=== PATIENT | female | born 1945 | race Caucasian/White ===

== ENCOUNTER 2020-11-14 08:49 | Inpatient (IN) | payer OTHER ==
[~2020-11-14] VITALS: Ht 170.2 cm; Wt 96.2 kg
[2020-11-14] MEDS ORDERED: IV NS 0.9% 500 ML IV ONE (09:00)
[2020-11-14] MEDS ORDERED: DEXAMETHASONE SOD PHOSPHATE 10 MG/ML VIAL IV ONE (09:00)
--- NOTE | 2020-11-14 09:00 | NUR ---
[id number] HOME, GENERALIZED WEAKNESS, SOB. +COVID LAST TUESDAY PER EMS, ATTING 86% RA DOCK HAND. BG 222. PATIENT A/OX4, SHORT OF BREATH, APPLIED O2, ON 2LPM VIA NC WITH SPO2 OF 96%. NEEDS ATTENDED.
[2020-11-14] MEDS ORDERED: DEXAMETHASONE SOD PHOSPHATE 10 MG/ML VIAL ONE (09:10)
--- NOTE | 2020-11-14 09:24 | NUR ---
IV LINE ESTABLISHED, BLOOD DRAWN AND SENT TO LAB.
[2020-11-14] MEDS ORDERED: PIOG30TA10 PO (09:25)
[2020-11-14] MEDS ORDERED: GABA600T12 PO (09:25)
[2020-11-14] MEDS ORDERED: METF-441 PO (09:25)
[2020-11-14] MEDS ORDERED: AMLO-212 PO (09:25)
[2020-11-14] MEDS ORDERED: GLIP10TA11 PO (09:25)
[2020-11-14] MEDS ORDERED: INSU100V7 SUBCUT (09:25)
[2020-11-14] MEDS ORDERED: LOSA100T31 PO (09:25)
[2020-11-14] MEDS ORDERED: METO-357 PO (09:25)
[2020-11-14 09:55] LABS: BASOPHILS % (AUTO) 0.3 % (0.0-2.0); EOSINOPHILS % (AUTO) 0.1 % (0.0-6.0); HEMATOCRIT 33 % (33-45); HEMOGLOBIN 9.9 g/dL (11.5-14.8); LYMPHOCYTES # (AUTO) 0.7 /CMM (0.8-4.8); LYMPHOCYTES % (AUTO) 7.8 % (20.0-44.0); MEAN CORPUSCULAR HGB CONC 30 g/dl (31.0-36.0); MEAN CORPUSCULAR VOLUME 70 fL (82-100); MONOCYTES # (AUTO) 0.6 /CMM (0.1-1.30); MONOCYTES % (AUTO) 7.3 % (2.0-12.0); NEUTROPHILS # (AUTO) 7.2 /CMM (1.8-8.9); NEUTROPHILS % (AUTO) 84.5 % (43.0-81.0); PLATELET COUNT (AUTO) 215 /CMM (150-450); RED BLOOD CELL COUNT(AUTO) 4.62 MIL/uL (4.0-5.2); WHITE BLOOD COUNT (AUTO) 8.5 K/uL (4.3-11.0)
[2020-11-14 10:05] LABS: CALCIUM, SERUM 8.8 mg/dL (8.5-10.1); CARBON DIOXIDE 24 mmol/L (21-32); CHLORIDE 101 mmol/L (98-107); CREATININE 1.5 mg/dL (0.6-1.3); GLUCOSE 238 mg/dL (74-106); POTASSIUM 4.3 mmol/L (3.5-5.1); SODIUM SERUM 134 mmol/L (136-145); UREA NITROGEN, BLOOD 25 mg/dL (7-18)
[2020-11-14 10:19] LABS: ALANINE AMINOTRANSFERASE 73 U/L (12-78); ALBUMIN 2.4 g/dL (3.4-5.0); ALKALINE PHOSPHATASE 97 U/L (46-116); ASPARTATE AMINOTRANSFERASE 71 U/L (15-37); B-TYPE NATRIURETIC PEPTIDE 4066 PG/ML (0-125); BILIRUBIN,TOTAL 0.4 mg/dL (0.2-1.0); TOTAL PROTEIN, SERUM 6.7 g/dL (6.4-8.2)
[2020-11-14 10:26] LABS: D-DIMER > 35.20 mg/L(FEU (0.17-0.50)
[2020-11-14] MEDS ORDERED: ASPIRIN 81 MG TAB.CHEW PO ONE (10:30)
[2020-11-14] MEDS ORDERED: FUROSEMIDE 20 MG/2 ML VIAL IV ONE (10:30)
[2020-11-14] MEDS ORDERED: ASPIRIN 81 MG TAB.CHEW ONE ×2 (10:32→10:37)
[2020-11-14] MEDS ORDERED: FUROSEMIDE 20 MG/2 ML VIAL ONE (10:32)
[2020-11-14] MEDS ORDERED: CT SWABBABLE VALVE TRANS SET 1 EA INFUS.SET MC ONE (11:15)
[2020-11-14] MEDS ORDERED: IV NS 0.9% 250 ML IV ONE (11:15)
[2020-11-14] MEDS ORDERED: IOHEXOL-350 100 ML VIAL IV ONE (11:15)
--- NOTE | 2020-11-14 12:08 | NUR ---
MOVE SHEET SUBMITTED
--- NOTE | 2020-11-14 12:13 | NUR ---
Patient a/ox4, breathing even and unlabored, no sob noted. Dr. benton at bedside with a bleach machine operator, informed patietn re: cta result with tx of TPA. And patient agreed to received TPA. Consent signed.
[2020-11-14 12:30] LABS: C-REACTIVE PROTEIN 7.2 mg/dL (0.0-0.9); CREATINE KINASE, TOTAL 88 U/L (26-192); FERRITIN 67 ng/mL (8-388)
[2020-11-14] MEDS ORDERED: TENECTEPLASE 50 MG KIT IV ONE (12:30)
[2020-11-14] MEDS ORDERED: ALTEPLASE 100 MG/VIAL VIAL IV ONE (13:00)
[2020-11-14 13:32] LABS: BILIRUBIN,DIRECT 0.2 mg/dL (0.0-0.2)
[2020-11-14] MEDS ORDERED: ALTEPLASE 1 VIAL ONE (13:33)
[2020-11-14 13:49] LABS: MAGNESIUM 1.9 mg/dL (1.8-2.4)
--- NOTE | 2020-11-14 14:01 | NUR ---
TPA INITIATED, MONITOR FOR S.SX OF BLEEDING. NONE NOTED AT THIS TIME. VITALS STABLE.
[2020-11-14 14:04] LABS: THYROID STIMULATING HORMONE 1.218 uIU/mL (0.358-3.74)
--- NOTE | 2020-11-14 16:51 | NUR ---
US TECH STS THEY CANT DO DUPLEX VENOUS LOWER EXT FINA. BECAUSE PATIENT IS COVID +. INFORMED DR. JONHSON. PER DR. JOHNSON, THEY NEED TO MAKE AN EXCEPTION FOR THIS PATIENT.
[2020-11-14] MEDS: FUROSEMIDE 40 MG/4 ML VIAL IV SCH ×2 (17:23→17:41)
--- NOTE | 2020-11-14 17:23 | NUR ---
LASIX RE-ORDERED BY PHARMACY, CHANGED TIME SCHEDULED DOSE.
[2020-11-14] MEDS ORDERED: FUROSEMIDE 40 MG/4 ML VIAL ONE (17:28)
--- NOTE | 2020-11-14 17:42 | NUR ---
ALTEPLASE STILL INFUSING. PATIENT NOTED TO FOLD ARMS AT TIME. HENCE, THE MACHINE STOPS.
[2020-11-14] MEDS: HEPARIN INFUSION/D5W 500 ML IV PRN (18:45)
--- NOTE | 2020-11-14 18:46 | NUR ---
HEPARIN INFUSION STARTED. REPEAT PTT IN 6 HOURS.
--- NOTE | 2020-11-14 19:23 | NUR ---
PATIENT RESTING, ALL NEEDS ATTENDED, KEPT COMFORTABLE, WILL CONTINUE TO MONITOR.
--- NOTE | 2020-11-14 19:30 | NUR ---
REC'D PT IN BED, AAOX4, -SOB, ON NC 4L SAT 98%. DENIES ANY PAIN DISCOMFORT, VSS. WCTM PT REC'D TPA FOR P.E, ONGOING HEPARIN, APTT DRAW AT 2330.
[2020-11-14] MEDS ORDERED: DEXTROSE 50%-WATER 50 ML DISP.SYRIN IV PRN (22:30)
[2020-11-14] MEDS ORDERED: Z GUARD REMEDY 2 OZ OINT TP PRN (22:30)
[2020-11-14] MEDS ORDERED: ACETAMINOPHEN 325 MG TABLET PO PRN (22:30)
[2020-11-14] MEDS: BLOOD SUGAR DIAGNOSTIC 1 EACH STRIP VI SCH (22:30)
[2020-11-14] MEDS ORDERED: INSULIN REGULAR, HUMAN 100 UNIT/ML 3 ML VIAL SQ PRN (22:30)
[2020-11-14] MEDS ORDERED: ONDANSETRON HCL/PF 4 MG/2 ML VIAL IVP PRN (22:30)
[2020-11-15] VITALS (19 sets, daily range): BP systolic 105–156; BP diastolic 56–87
--- NOTE | 2020-11-15 00:05 | NUR ---
aptt result rec'd. no change per protocol. cont heparin infusion
[2020-11-15] MEDS ORDERED: FUROSEMIDE 40 MG/4 ML VIAL ONE (00:49)
[2020-11-15] MEDS ORDERED: DEXAMETHASONE SOD PHOSPHATE 10 MG/ML VIAL ONE (00:49)
[2020-11-15] MEDS: FUROSEMIDE 40 MG/4 ML VIAL IV SCH (00:50)
[2020-11-15] MEDS: DEXAMETHASONE SOD PHOSPHATE 10 MG/ML VIAL IV SCH ×2 (00:50→09:02)
[2020-11-15] MEDS ORDERED: ACETAMINOPHEN 325 MG TABLET ONE (02:31)
--- NOTE | 2020-11-15 03:15 | NUR ---
STARTED CONVALASCENT PLASMA. SEE BLOOD/BLOOD COMPONENT TRANSFUSION SHEET IN CHART. UNABLE TO DOCUMENT ON [employer]. VERIFIED WITH 2ND RN.
[2020-11-15 06:11] LABS: BASOPHILS % (AUTO) 0.2 % (0.0-2.0); HEMATOCRIT 31 % (33-45); HEMOGLOBIN 9.5 g/dL (11.5-14.8); LYMPHOCYTES # (AUTO) 0.7 /CMM (0.8-4.8); LYMPHOCYTES % (AUTO) 10.5 % (20.0-44.0); MEAN CORPUSCULAR HGB CONC 31 g/dl (31.0-36.0); MEAN CORPUSCULAR VOLUME 71 fL (82-100); MONOCYTES # (AUTO) 0.6 /CMM (0.1-1.30); MONOCYTES % (AUTO) 8.7 % (2.0-12.0); NEUTROPHILS # (AUTO) 5.4 /CMM (1.8-8.9); NEUTROPHILS % (AUTO) 80.6 % (43.0-81.0); PLATELET COUNT (AUTO) 236 /CMM (150-450); RED BLOOD CELL COUNT(AUTO) 4.35 MIL/uL (4.0-5.2); WHITE BLOOD COUNT (AUTO) 6.7 K/uL (4.3-11.0)
--- NOTE | 2020-11-15 06:14 | NUR ---
REPORT GIVEN TO OLEKSANDR SPRING FOR [facility]; PT WILL BE TRANSPORTED TO ICU
--- NOTE | 2020-11-15 06:16 | NUR ---
Rec'd report from for [facility].
[2020-11-15 06:27] LABS: ALANINE AMINOTRANSFERASE 61 U/L (12-78); ALBUMIN 2.4 g/dL (3.4-5.0); ALKALINE PHOSPHATASE 91 U/L (46-116); ASPARTATE AMINOTRANSFERASE 57 U/L (15-37); BILIRUBIN,TOTAL 0.4 mg/dL (0.2-1.0); CALCIUM, SERUM 8.5 mg/dL (8.5-10.1); CARBON DIOXIDE 21 mmol/L (21-32); CHLORIDE 102 mmol/L (98-107); CREATININE 1.4 mg/dL (0.6-1.3); GLUCOSE 289 mg/dL (74-106); MAGNESIUM 1.7 mg/dL (1.8-2.4); PHOSPHORUS 4.7 mg/dL (2.5-4.9); POTASSIUM 4.5 mmol/L (3.5-5.1); SODIUM SERUM 137 mmol/L (136-145); TOTAL PROTEIN, SERUM 6.7 g/dL (6.4-8.2); UREA NITROGEN, BLOOD 33 mg/dL (7-18)
--- NOTE | 2020-11-15 07:00 | NUR ---
DOCUMENT PROCESSOR NOTE: Rec'd pt from ER accompanied by RN and EMT. Pt able to walk to bed w/ assist, unsteady gait. Pt Eritrean speaking only. IV sites on RAC #20 and RFA #20 patent and flushed. Dressing c/d/i. Heparin drip infusing at 1000units. Oriented to room and call light. Will endorse to oncoming nurse.
--- NOTE | 2020-11-15 07:00 | NUR ---
ICU OPENING NOTES RECEIVED PT AWAKE IN BED. A/O X3-4. CZECH SPEAKING. JAVIER RN ABLE TO HELP WITH TRANSLATION. O2 VIA NC @2L, SATURATING @98%. NO SOB OR ANY RESPIRATORY DISTRESS AT THIS TIME. SKIN IS INTACT. BRUISES NOTED ON ARMS. R AC #20 AND R FA #20 BOTH INTACT, PATENT. HEPARIN DRIP INFUSING @1000 UNITS. NO SIGNS OF BLEEDING. SAFETY MEASURES OBSERVED. CALL LIGHT WITHIN REACH. BED LOCKED AND AT LOWEST POSITION WITH SIDE RAILS UP X2. WILL CONTINUE TO MONITOR
[2020-11-15] MEDS: BLOOD SUGAR DIAGNOSTIC 1 EACH STRIP VI SCH ×4 (07:30→21:58)
[2020-11-15 08:28] LABS: BAND % (MANUAL) 1 % (0.0-5.0); LYMPHOCYTES % (MANUAL) 5 % (16-48); MONOCYTES % (MANUAL) 6 % (0-11.0); MYELOCYTES % 2 % (0-0); NEUTROPHILS % (MANUAL) 86 (42-76)
[2020-11-15] MEDS ORDERED: AMLODIPINE BESYLATE 5 MG TABLET PO SCH (09:00)
[2020-11-15] MEDS ORDERED: LOSARTAN POTASSIUM 50 MG TABLET PO SCH (09:00)
[2020-11-15] MEDS: Magnesium 1GM/D5W 100ML PREMIX 100 ML IV SCH ×2 (09:01→10:20)
[2020-11-15] MEDS: PIOGLITAZONE HCL 15 MG TABLET PO SCH (09:01)
[2020-11-15] MEDS: GABAPENTIN 300 MG CAPSULE PO SCH ×3 (09:02→18:25)
[2020-11-15] MEDS: AMLODIPINE BESYLATE 5 MG TABLET PO SCH (09:04)
[2020-11-15] MEDS: METOPROLOL SUCCINATE 50 MG TAB.SR.24H PO SCH (09:04)
[2020-11-15] MEDS: *INSULIN REGULAR(HUMULIN R)HUM 100 UNIT/ML VIAL SQ PRN ×4 (09:33→22:12)
--- NOTE | 2020-11-15 12:39 | NUR ---
RN NOTES BLOOD SUGAR OF 408. 10 UNITS OF INSULIN GIVEN PER SLIDING SCALE. INFORMED DR. RUIZ. NO NEW ORDERS MADE. WILL CONTINUE TO MONITOR
[2020-11-15] MEDS: SOD FERRIC GLUC 125 MG in IV NS 0.9% 100 ML IV SCH (14:13)
[2020-11-15 15:16] LABS: IRON, SERUM 35 ug/dl (50-175); TOTAL IRON BINDING CAPACITY 277 ug/dl (250-450)
[2020-11-15] MEDS: HEPARIN INFUSION/D5W 500 ML IV PRN (15:54)
[2020-11-15 16:34] LABS: BILIRUBIN,URINE SMALL (NEGATIVE); COLOR,URINE YELLOW (YELLOW); LEUKOCYTE ESTERASE ,URINE NEGATIVE (NEGATIVE); NITRITE, URINE NEGATIVE (NEGATIVE); PH,URINE 5.5 (5.0-8.0); PROTEIN,URINE NEGATIVE (NEGATIVE); UGLUCOSE 500 MG/DL mg/dL (NEGATIVE); UROBILINOGEN,URINE 0.2 EU/dL (0.2)
[2020-11-15 16:45] LABS: BACTERIA,URINE Few /HPF (None Seen); RBC,URINE 0-2 /HPF (0-2); SQUAMOUS EPITHELIAL CELL,UR Moderate /HPF (None Seen); WBC,URINE 0-2 /HPF (0-3)
[2020-11-15 16:46] LABS: EOSINOPHIL,URINE None Seen
[2020-11-15 16:49] LABS: URINE TOTAL PROTEIN 55.9 mg/dL (0-11.9)
[2020-11-15 17:25] LABS: CHOLESTEROL 169 mg/dL (<200); HDL CHOLESTEROL 39 mg/dL (40-60); LDL 105 mg/dL (0-99); THYROID STIMULATING HORMONE 0.548 uIU/mL (0.358-3.74); TRIGLYCERIDES 193 mg/dL (30-150)
--- NOTE | 2020-11-15 19:25 | NUR ---
RN OPENING NOTES RECEIVED PT IN BED RESTING. A/O X4. TURKISH SPEAKING PRIMARILY. UNDERSTANDS FRISIAN, ABLE TO MAKE NEEDS KNOWN. PT IS ON 2L OF O2 VIA NASAL CANNULA. PT IS CURRENTLY AT 96% NO SOB OR RESP DISTRESS NOTED. PT TOLERATING WELL. BREATHING EVEN AND UNLABORED. ON CARDIAC MONITORING PT IS PRESENTING WITH NSR HEART OF 74 AT THIS TIME. IV SITES FLUSHED, RAC AND RFA. PT HAS HEPARIN DRIP @ 1000 UNITS/KG, AWAITING MORNING LABS. NO S/S OF BLEEDING AT THIS TIME. PT DENIES PAIN AT THIS TIME. SAFETY MEASURES IN PLACE. HOB ELEVATED. SIDE RAILS UP X2. BED LOCKED IN LOWEST POSITION WITH CALL LIGHT WITHIN REACH, WILL CONTINUE TO MONITOR.
--- NOTE | 2020-11-15 19:29 | NUR ---
ICU CLOSING NOTES PT AWAKE RESTING IN BED. A/O X3-4. BELIZEAN SPEAKING. JAVIER RN ABLE TO HELP WITH TRANSLATION. O2 VIA NC @2L, SATURATING @98%. NO SOB OR ANY RESPIRATORY DISTRESS AT THIS TIME. SKIN IS INTACT. BRUISES NOTED ON ARMS. R AC #20 AND R FA #20 BOTH INTACT, PATENT. HEPARIN DRIP INFUSING @1000 UNITS. NO SIGNS OF BLEEDING. NO PAIN REPORTED AT THIS TIME. SAFETY MEASURES OBSERVED. CALL LIGHT WITHIN REACH. BED LOCKED AND AT LOWEST POSITION WITH SIDE RAILS UP X2. WILL ENDORSE TO NURSE FOR MEMO
[2020-11-15] MEDS: INSULIN GLARGINE, 100 UNIT/ML CARTRIDGE SQ SCH (22:12)
[2020-11-16] VITALS (17 sets, daily range): BP systolic 105–137; BP diastolic 49–73
[2020-11-16] MEDS ORDERED: DEXTROSE 50%-WATER 50 ML DISP.SYRIN IV PRN (01:00)
[2020-11-16 04:50] LABS: BASOPHILS % (AUTO) 0.3 % (0.0-2.0); HEMATOCRIT 29 % (33-45); HEMOGLOBIN 9.1 g/dL (11.5-14.8); LYMPHOCYTES # (AUTO) 0.8 /CMM (0.8-4.8); LYMPHOCYTES % (AUTO) 9.2 % (20.0-44.0); MEAN CORPUSCULAR HGB CONC 31 g/dl (31.0-36.0); MEAN CORPUSCULAR VOLUME 70 fL (82-100); MONOCYTES # (AUTO) 0.8 /CMM (0.1-1.30); MONOCYTES % (AUTO) 8.9 % (2.0-12.0); NEUTROPHILS # (AUTO) 7.2 /CMM (1.8-8.9); NEUTROPHILS % (AUTO) 81.6 % (43.0-81.0); PLATELET COUNT (AUTO) 328 /CMM (150-450); RED BLOOD CELL COUNT(AUTO) 4.16 MIL/uL (4.0-5.2); WHITE BLOOD COUNT (AUTO) 8.8 K/uL (4.3-11.0)
[2020-11-16 05:10] LABS: ALANINE AMINOTRANSFERASE 54 U/L (12-78); ALBUMIN 2.5 g/dL (3.4-5.0); ALKALINE PHOSPHATASE 93 U/L (46-116); ASPARTATE AMINOTRANSFERASE 40 U/L (15-37); BILIRUBIN,TOTAL 0.3 mg/dL (0.2-1.0); CALCIUM, SERUM 8.8 mg/dL (8.5-10.1); CARBON DIOXIDE 23 mmol/L (21-32); CHLORIDE 99 mmol/L (98-107); CREATININE 1.7 mg/dL (0.6-1.3); GLUCOSE 311 mg/dL (74-106); MAGNESIUM 2.1 mg/dL (1.8-2.4); PHOSPHORUS 4.1 mg/dL (2.5-4.9); POTASSIUM 3.8 mmol/L (3.5-5.1); SODIUM SERUM 134 mmol/L (136-145); TOTAL PROTEIN, SERUM 6.3 g/dL (6.4-8.2); UREA NITROGEN, BLOOD 46 mg/dL (7-18)
[2020-11-16 05:12] LABS: CREATINE KINASE, TOTAL 43 U/L (26-192)
--- NOTE | 2020-11-16 05:15 | NUR ---
TITRATING HEPARIN DRIP ACCORDING TO PROTOCOL BASED ON NEW LABS.
[2020-11-16 05:28] LABS: BAND % (MANUAL) 4 % (0.0-5.0); LYMPHOCYTES % (MANUAL) 7 % (16-48); MONOCYTES % (MANUAL) 7 % (0-11.0); NEUTROPHILS % (MANUAL) 82 (42-76)
--- NOTE | 2020-11-16 06:35 | NUR ---
RN CLOSING NOTES RN CLOSING NOTES NO SIGNIFICANT CHANGES. PT RESTED WELL THROUGHOUT NIGHT. STILL ON 2L OF O2 NASAL CANNULA, SATURATION 99% AT THIS TIME. TOLERATING WELL. NO SOB OR RESP DISTRESS NOTED, BREATHING EVEN AND UNLABORED. STILL NSR HEART RATE OF 61 ON DIRECTOR FUNDS DEVELOPMENT. CURRENTLY RECEIVING, HEPARIN 900 UNIT/HR AT THIS TIME. NO S/S OF BLEEDING. PT USED BSC, AMB WITH ASSIST. DENIED BED BATH, HYGIENE PRODUCTS PROVIDED. SAFETY MEASURES IN PLACE. HOB ELEVATED SIDE RAILS X2. BED LOCKED IN LOWEST POSITION. CALL LIGHT WITHIN REACH WILL ENDORSE AM NURSE FOR CONTINUATION OF CARE.
[2020-11-16] MEDS: DEXAMETHASONE SOD PHOSPHATE 10 MG/ML VIAL IV SCH (08:51)
[2020-11-16] MEDS: BLOOD SUGAR DIAGNOSTIC 1 EACH STRIP IN SCH ×4 (08:51→22:07)
[2020-11-16] MEDS: AMLODIPINE BESYLATE 5 MG TABLET PO SCH (08:54)
[2020-11-16] MEDS: METOPROLOL SUCCINATE 50 MG TAB.SR.24H PO SCH (08:54)
[2020-11-16] MEDS: GABAPENTIN 300 MG CAPSULE PO SCH ×3 (08:55→16:31)
[2020-11-16] MEDS: PIOGLITAZONE HCL 15 MG TABLET PO SCH (08:55)
[2020-11-16] MEDS: INSULIN REGULAR, HUMAN 100 UNIT/ML 3 ML VIAL SQ PRN ×4 (09:01→22:12)
[2020-11-16] MEDS: APIXABAN 2.5 MG TABLET PO SCH ×2 (13:42→21:43)
--- NOTE | 2020-11-16 14:25 | NUR ---
DOCUMENT PREPARER MICROFILMING NOTE RECEIVED PATIENT FROM ICU ALERT ORIENTED X4, PLACED ON 2L NC OF O2 ,NO SOB NOTED SATURATION 98% , ON TELE MONITOR SR 89 , RT AC AND RT FA HL INTACT , BED IN LOWEST AND LOCKED POSITION, CALL LIGHT WITHIN REACH , WILL CONT TO MONITOR
--- NOTE | 2020-11-16 14:30 | NUR ---
PT TRANSPORTED SAFELY W NO COMPLICATIONS TO RUDDY VIA WHEELCHAIR W WALL CRANE OPERATOR AND RN. 2L/MIN NASAL CANULA WITH OXYGEN TANK. BEDSIDE REPORT GIVEN TO BARTOLO OF RUDDY. ALL BELONGINGS BROUGHT W PATIENT.
[2020-11-16] MEDS: SOD FERRIC GLUC 125 MG in IV NS 0.9% 100 ML IV SCH (14:34)
--- NOTE | 2020-11-16 18:34 | NUR ---
TELE R NOTE HAVING DINNER , ABLE TO EAT SELF, NOT IN DISTRESS
--- NOTE | 2020-11-16 19:55 | NUR ---
RN OPENING NOTES RECEIVED PT IN BED RESTING. A/O X4. GUINEAN SPEAKING PRIMARILY. UNDERSTANDS DIVEHI, ABLE TO MAKE NEEDS KNOWN. PT IS ON 2L OF O2 VIA NASAL CANNULA. PT IS CURRENTLY AT 98% NO SOB OR RESP DISTRESS NOTED. PT TOLERATING WELL. BREATHING EVEN AND UNLABORED. ON CARDIAC MONITORING PT IS PRESENTING WITH NSR HEART OF 73 AT THIS TIME. IV SITES FLUSHED, RAC AND RFA. AFEBRILE. PT DENIES PAIN AT THIS TIME. SAFETY MEASURES IN PLACE. HOB ELEVATED. SIDE RAILS UP X2. BED LOCKED IN LOWEST POSITION WITH CALL LIGHT WITHIN REACH, WILL CONTINUE TO MONITOR.
[2020-11-16] MEDS: INSULIN GLARGINE, 100 UNIT/ML CARTRIDGE SQ SCH (22:13)
[2020-11-17] VITALS: BP 127/65
[2020-11-17 04:00] VITALS: BP 125/81
[2020-11-17 07:13] LABS: BASOPHILS % (AUTO) 0.2 % (0.0-2.0); HEMATOCRIT 33 % (33-45); LYMPHOCYTES # (AUTO) 1.1 /CMM (0.8-4.8); LYMPHOCYTES % (AUTO) 8.6 % (20.0-44.0); MEAN CORPUSCULAR HGB CONC 30 g/dl (31.0-36.0); MEAN CORPUSCULAR VOLUME 71 fL (82-100); MONOCYTES % (AUTO) 7.7 % (2.0-12.0); NEUTROPHILS # (AUTO) 10.6 /CMM (1.8-8.9); NEUTROPHILS % (AUTO) 83.5 % (43.0-81.0); PLATELET COUNT (AUTO) 399 /CMM (150-450); RED BLOOD CELL COUNT(AUTO) 4.73 MIL/uL (4.0-5.2); WHITE BLOOD COUNT (AUTO) 12.6 K/uL (4.3-11.0)
[2020-11-17 07:14] LABS: CALCIUM, SERUM 8.8 mg/dL (8.5-10.1); CARBON DIOXIDE 25 mmol/L (21-32); CHLORIDE 101 mmol/L (98-107); CREATININE 1.7 mg/dL (0.6-1.3); GLUCOSE 204 mg/dL (74-106); MAGNESIUM 2.2 mg/dL (1.8-2.4); PHOSPHORUS 3.3 mg/dL (2.5-4.9); POTASSIUM 4.2 mmol/L (3.5-5.1); SODIUM SERUM 134 mmol/L (136-145); UREA NITROGEN, BLOOD 54 mg/dL (7-18)
--- NOTE | 2020-11-17 07:30 | NUR ---
RN OPENING NOTE PATIENT RECEIVED IN BED CURRENTLY RESTING IN SEMI-FOWLERS POSITION, A&OX4, ABLE TO MAKE NEEDS KNOWN, BREATHING EVENLY AND UNLABORED, TOLERATING O2 THERAPY WELL VIA NC AT 3 LPM SATTING AT 98%. NO SOB NOTED, DENIES PAIN. TELE MONITOR READING SINUS RHYTHM. ISOLATION PRECAUTIONS MAINTAINED. TWO PERIPHERAL IV LINE RAC #20 G AND RIGHT FOREARM #20 AYDEN INTACT AND PATENT. LEFT UPPER ARM MIDLINE INTACT AND PATENT. DRESSING CLEAN AND DRY. SAFETY PRECAUTIONS IMPLEMENTED, BED LOCKED IN LOWEST POSITION, SIDE RAILS UPX2, CALL LIGHT WITHIN REACH. WILL CONTINUE TO MONITOR.
--- NOTE | 2020-11-17 07:56 | NUR ---
RN CLOSING NOTES NO SIGNIFICANT CHANGES. PT RESTED WELL THROUGHOUT NIGHT. STILL ON 2L OF O2 NASAL CANNULA, SATURATION 99% AT THIS TIME. TOLERATING WELL. NO SOB OR RESP DISTRESS NOTED, BREATHING EVEN AND UNLABORED. STILL NSR HEART RATE OF 70 ON BLACK OXIDE COATING EQUIPMENT TENDER. PT USED BSC, AMB WITH ASSIST. DENIED BED BATH, HYGIENE PRODUCTS PROVIDED. SAFETY MEASURES IN PLACE. HOB ELEVATED SIDE RAILS X2. BED LOCKED IN LOWEST POSITION. CALL LIGHT WITHIN REACH ENDORSED AM NURSE FOR CONTINUATION OF CARE.
[2020-11-17 08:00] VITALS: BP 173/60
[2020-11-17] MEDS: PIOGLITAZONE HCL 15 MG TABLET PO SCH (08:55)
[2020-11-17] MEDS: GABAPENTIN 300 MG CAPSULE PO SCH ×3 (08:55→17:41)
[2020-11-17] MEDS: AMLODIPINE BESYLATE 5 MG TABLET PO SCH (08:56)
[2020-11-17] MEDS: METOPROLOL SUCCINATE 50 MG TAB.SR.24H PO SCH (08:56)
[2020-11-17] MEDS: DEXAMETHASONE SOD PHOSPHATE 10 MG/ML VIAL IV SCH (08:57)
[2020-11-17] MEDS: INSULIN REGULAR, HUMAN 100 UNIT/ML 3 ML VIAL SQ PRN ×3 (09:01→17:44)
[2020-11-17] MEDS: APIXABAN 2.5 MG TABLET PO SCH (09:07)
[2020-11-17] MEDS: BLOOD SUGAR DIAGNOSTIC 1 EACH STRIP IN SCH ×4 (09:07→22:15)
[2020-11-17 09:34] LABS: BAND % (MANUAL) 4 % (0.0-5.0); LYMPHOCYTES % (MANUAL) 16 % (16-48); METAMYELOCYTES % 1 % (0-0); MONOCYTES % (MANUAL) 8 % (0-11.0); MYELOCYTES % 1 % (0-0); NEUTROPHILS % (MANUAL) 70 (42-76)
[2020-11-17 12:00] VITALS: BP 154/79
[2020-11-17] MEDS: SOD FERRIC GLUC 125 MG in IV NS 0.9% 100 ML IV SCH (15:01)
[2020-11-17 16:17] VITALS: BP 130/48
[2020-11-17] MEDS: APIXABAN 5 MG TABLET PO SCH (17:42)
--- NOTE | 2020-11-17 17:58 | NUR ---
RN CLOSING NOTE PATIENT IN BED CURRENTLY RESTING IN SEMI-FOWLERS POSITION, A&OX4, GREEK SPEAKING, ABLE TO MAKE NEEDS KNOWN, BREATHING EVENLY AND UNLABORED, TOLERATING O2 THERAPY WELL VIA NC AT 4 LPM SATTING AT 98%. NO SOB NOTED, DENIES PAIN. TELE MONITOR READING SINUS RHYTHM. ISOLATION PRECAUTIONS MAINTAINED. TWO PERIPHERAL IV LINE RAC #20 G AND RIGHT FOREARM #20 AYDEN INTACT AND PATENT. LEFT UPPER ARM MIDLINE INTACT AND PATENT. DRESSING CLEAN AND DRY. SAFETY PRECAUTIONS IMPLEMENTED, BED LOCKED IN LOWEST POSITION, SIDE RAILS UPX2, CALL LIGHT WITHIN REACH. CONTINUATION OF CARE WILL BE ENDORSED TO UPCOMING SHIFT.
--- NOTE | 2020-11-17 19:35 | NUR ---
MEDICAL PRACTICE ADMINISTRATOR OPENING NOTES RECEIVED PATIENT RESTING IN BED. A/O X3. CROATIAN SPEAKING PRIMARILY. UNDERSTANDS MINIMAL NEPALI, ABLE TO MAKE NEEDS KNOWN. PT IS ON 3L OF O2 VIA NASAL CANNULA. PT IS CURRENTLY AT 96%. NO SOB OR RESP DISTRESS NOTED. BREATHING EVEN AND UNLABORED. ON CARDIAC MONITORING WITH NSR HEART OF 76 AT THIS TIME. IV SITES FLUSHED, RAC AND RFA. LEFT UPPER ARM MIDLINE, INTACT PATENT. AFEBRILE. PT DENIES PAIN AT THIS TIME. SAFETY MEASURES IN PLACE. HOB ELEVATED. SIDE RAILS UP X2. BED LOCKED IN LOWEST POSITION WITH CALL LIGHT WITHIN REACH, WILL CONTINUE TO MONITOR.
[2020-11-17 20:00] VITALS: BP 142/72
[2020-11-17] MEDS: INSULIN GLARGINE, 100 UNIT/ML CARTRIDGE SQ SCH (22:38)
[2020-11-17] MEDS: *INSULIN REGULAR(HUMULIN R)HUM 100 UNIT/ML VIAL SQ PRN (23:01)
--- NOTE | 2020-11-17 23:01 | NUR ---
CAR RUNNER NOTE PATIENT'S BLOOD SUGAR LEVEL IS 318 MG/DL. 8 UNITS SLIDING SCALE INSULIN & 50 UNITS OF SCHEDULED LANTUS GIVEN ORDERED. OFFERED JUICE TO THE PATIENT, TOLERATED WELL. WILL CONTINUE TO MONITOR.
[2020-11-18 00:05] VITALS: BP 127/63
[2020-11-18 02:08] LABS: PTH, INTACT 54 pg/mL (15-65)
[2020-11-18 04:00] VITALS: BP 115/67
--- NOTE | 2020-11-18 06:58 | NUR ---
MILLER SUPERVISOR CLOSING NOTES NO SIGNIFICANT CHANGES THROUGH OUT REGISTERED NURSE CARDIAC TELEMETRY. PT RESTED WELL AT NIGHT. STILL ON 3L OF O2 NASAL CANNULA, SATURATION 97% AT THIS TIME. TOLERATING WELL. NO SOB OR RESP DISTRESS NOTED, BREATHING EVEN AND UNLABORED. NSR HEART RATE OF 67 ON PRODUCTION TEAM MANAGER. PT USED BSC, AMB WITH ASSIST. SAFETY MEASURES IN PLACE. HOB ELEVATED SIDE RAILS X2. BED LOCKED IN LOWEST POSITION. CALL LIGHT WITHIN REACH. WILL ENDORSE TO AM NURSE FOR CONTINUATION OF CARE.
[2020-11-18 07:13] LABS: BASOPHILS % (AUTO) 0.2 % (0.0-2.0); HEMATOCRIT 31 % (33-45); HEMOGLOBIN 9.4 g/dL (11.5-14.8); LYMPHOCYTES # (AUTO) 1.1 /CMM (0.8-4.8); LYMPHOCYTES % (AUTO) 9.3 % (20.0-44.0); MEAN CORPUSCULAR HGB CONC 31 g/dl (31.0-36.0); MEAN CORPUSCULAR VOLUME 71 fL (82-100); MONOCYTES # (AUTO) 0.9 /CMM (0.1-1.30); MONOCYTES % (AUTO) 7.1 % (2.0-12.0); NEUTROPHILS # (AUTO) 10.2 /CMM (1.8-8.9); NEUTROPHILS % (AUTO) 83.4 % (43.0-81.0); PLATELET COUNT (AUTO) 408 /CMM (150-450); RED BLOOD CELL COUNT(AUTO) 4.32 MIL/uL (4.0-5.2); WHITE BLOOD COUNT (AUTO) 12.2 K/uL (4.3-11.0)
--- NOTE | 2020-11-18 07:21 | NUR ---
PATIENT CARE SPECIALIST NOTE PATIENT'S BS IS 197 MG/DL. NO SLIDING SCALE COVERAGE NOT GIVEN YET. ENDORSED TO AM RN FOR CONTINUITY OF CARE.
--- NOTE | 2020-11-18 07:30 | NUR ---
RN OPENING NOTES PATIENT CURRENTLY IN BED, RESTING. A/OX4, GERMAN SPEAKING. ABLE TO MAKE NEEDS KNOWN. CURRENTLY ON 3LPM O2 THERAPY, TOLERATING WELL. O2 SAT WNL. NO S/S OF DISTRESS AT THIS TIME. JEWELLERY DESIGNER SHOWING NSR AT THIS TIME. PATIENT HAS A JASON MIDLINE, RAC 20G, AND RFA 20G IV. ALL IVS INTACT AND PATENT. NO S/S OF INFECTION AT THIS TIME. SAFETY MEASURES IN PLACE. HOB ELEVATED SIDE RAILS X2. BED LOCKED IN LOWEST POSITION. CALL LIGHT WITHIN REACH. WILL CONT TO MONITOR AND PROVIDE CARE.
[2020-11-18 08:00] VITALS: BP 120/55
[2020-11-18 08:32] LABS: CALCIUM, SERUM 8.8 mg/dL (8.5-10.1); POTASSIUM 4.2 mmol/L (3.5-5.1)
[2020-11-18] MEDS: AMLODIPINE BESYLATE 5 MG TABLET PO SCH (08:42)
[2020-11-18] MEDS: PIOGLITAZONE HCL 15 MG TABLET PO SCH (08:42)
[2020-11-18] MEDS: DEXAMETHASONE SOD PHOSPHATE 10 MG/ML VIAL IV SCH (08:43)
[2020-11-18] MEDS: METOPROLOL SUCCINATE 50 MG TAB.SR.24H PO SCH (08:43)
[2020-11-18] MEDS: APIXABAN 5 MG TABLET PO SCH ×2 (08:44→16:24)
[2020-11-18] MEDS: INSULIN REGULAR, HUMAN 100 UNIT/ML 3 ML VIAL SQ PRN ×3 (08:45→16:37)
[2020-11-18] MEDS: BLOOD SUGAR DIAGNOSTIC 1 EACH STRIP IN SCH ×4 (08:45→22:31)
[2020-11-18] MEDS: GABAPENTIN 300 MG CAPSULE PO SCH ×3 (08:45→16:23)
[2020-11-18 08:46] LABS: PHOSPHORUS 2.8 mg/dL (2.5-4.9)
[2020-11-18 10:47] LABS: BAND % (MANUAL) 3 % (0.0-5.0); LYMPHOCYTES % (MANUAL) 11 % (16-48); METAMYELOCYTES % 1 % (0-0); MONOCYTES % (MANUAL) 7 % (0-11.0); NEUTROPHILS % (MANUAL) 78 (42-76)
[2020-11-18 12:00] VITALS: BP 132/72
[2020-11-18 13:11] LABS: *SPE A/G RATIO 0.7 (0.7-1.7); *SPE ALBUMIN 2.5 g/dL (2.9-4.4); *SPE ALPHA-1-GLOBULIN 0.4 g/dL (0.0-0.4); *SPE ALPHA-2-GLOBULIN 1.4 g/dL (0.4-1.0); *SPE BETA GLOBULIN 0.9 g/dL (0.7-1.3); *SPE GLOBULIN, TOTAL 3.5 g/dL (2.2-3.9); *SPE M-SPIKE Not Observed g/dL (Not Observed); *SPEGAMMA GLOBULIN 0.9 g/dL (0.4-1.8)
[2020-11-18] MEDS: SOD FERRIC GLUC 125 MG in IV NS 0.9% 100 ML IV SCH (13:37)
[2020-11-18 16:00] VITALS: BP 117/62
--- NOTE | 2020-11-18 18:55 | NUR ---
RN OPENING NOTES PATIENT CURRENTLY IN BED, RESTING. A/OX4, NORTHERN IRISH SPEAKING. ABLE TO MAKE NEEDS KNOWN. CURRENTLY ON 3LPM O2 THERAPY, TOLERATING WELL. O2 SAT WNL. NO S/S OF DISTRESS AT THIS TIME. WORKDAY DIRECTOR SHOWING NSR AT THIS TIME. PATIENT HAS A JASON MIDLINE AND RFA 20G IV. BOTH IVS INTACT AND PATENT. NO S/S OF INFECTION AT THIS TIME. R AC 20G IV REMOVED DUE TO REDNESS AT SITE. IV REMOVED WITHOUT S/S OF EXCESSIVE BLEEDING. NO REDNESS AT SITE AT THIS TIME. SAFETY MEASURES IN PLACE. HOB ELEVATED SIDE RAILS X2. BED LOCKED IN LOWEST POSITION. CALL LIGHT WITHIN REACH. WILL ENDORSE TO ENGINEER OPERATIONS AND MAINTENANCE NURSE FOR MEMO. Addendum: 11/18/20 at 1857 by RHEA FRANKLIN RN *RN CLOSING NOTE
--- NOTE | 2020-11-18 19:30 | NUR ---
RECEIVED PATIENT RESTING IN BED. A/O X3. GREENLANDIC SPEAKING PRIMARILY. UNDERSTANDS MINIMAL TAMAZIGHT, ABLE TO MAKE NEEDS KNOWN. PT IS ON 3L OF O2 VIA NASAL CANNULA. PT IS CURRENTLY AT 96%. NO SOB OR RESP DISTRESS NOTED. BREATHING EVEN AND UNLABORED. IV SITE FLUSHED, RFA. LEFT UPPER ARM MIDLINE, INTACT PATENT. AFEBRILE. PT DENIES PAIN AT THIS TIME. SAFETY MEASURES IN PLACE. HOB ELEVATED. SIDE RAILS UP X2. BED LOCKED IN LOWEST POSITION WITH CALL LIGHT WITHIN REACH, WILL CONTINUE TO MONITOR Addendum: 11/19/20 at 0151 by COLBY KIRKLAND RN CLEMENTINE OPENING NOTE
[2020-11-18 20:00] VITALS: BP 120/76
[2020-11-18] MEDS: *INSULIN REGULAR(HUMULIN R)HUM 100 UNIT/ML VIAL SQ PRN (22:37)
[2020-11-18] MEDS: INSULIN GLARGINE, 100 UNIT/ML CARTRIDGE SQ SCH (22:38)
[2020-11-19] VITALS: BP 139/71
[2020-11-19 04:00] VITALS: BP 142/74
--- NOTE | 2020-11-19 07:30 | NUR ---
RN OPENING NOTES PATIENT RECIEVED IN BED, RESTING. A/OX4, EMIRATI SPEAKING. ABLE TO MAKE NEEDS KNOWN. CURRENTLY ON 3LPM O2 THERAPY, TOLERATING WELL. O2 SAT WNL. NO S/S OF DISTRESS AT THIS TIME. DIE CASTING MACHINE SETTER SHOWING NSR AT THIS TIME. PATIENT HAS A JASON MIDLINE AND RFA 20G IV. BOTH IVS INTACT AND PATENT. NO S/S OF INFECTION AT THIS TIME. SAFETY MEASURES IN PLACE. HOB ELEVATED SIDE RAILS X2. BED LOCKED IN LOWEST POSITION. CALL LIGHT WITHIN REACH. WILL CONTINUE TO MONITOR AND PROVIDE CARE THROUGHOUT SHIFT.
[2020-11-19 07:34] LABS: BASOPHILS # (AUTO) 0.1 /CMM (0.0-0.2); BASOPHILS % (AUTO) 0.4 % (0.0-2.0); HEMATOCRIT 31 % (33-45); HEMOGLOBIN 9.6 g/dL (11.5-14.8); LYMPHOCYTES # (AUTO) 1.4 /CMM (0.8-4.8); MEAN CORPUSCULAR HGB CONC 31 g/dl (31.0-36.0); MEAN CORPUSCULAR VOLUME 70 fL (82-100); MONOCYTES % (AUTO) 7.7 % (2.0-12.0); NEUTROPHILS # (AUTO) 11.1 /CMM (1.8-8.9); NEUTROPHILS % (AUTO) 81.9 % (43.0-81.0); PLATELET COUNT (AUTO) 462 /CMM (150-450); RED BLOOD CELL COUNT(AUTO) 4.44 MIL/uL (4.0-5.2); WHITE BLOOD COUNT (AUTO) 13.6 K/uL (4.3-11.0)
[2020-11-19 07:46] LABS: CREATININE 0.9 mg/dL (0.6-1.3); MAGNESIUM 2.2 mg/dL (1.8-2.4); PHOSPHORUS 2.9 mg/dL (2.5-4.9); POTASSIUM 4.1 mmol/L (3.5-5.1)
[2020-11-19 08:00] VITALS: BP 142/53
[2020-11-19] MEDS: BLOOD SUGAR DIAGNOSTIC 1 EACH STRIP IN SCH ×4 (09:07→21:34)
[2020-11-19] MEDS: GABAPENTIN 300 MG CAPSULE PO SCH ×3 (09:08→17:10)
[2020-11-19] MEDS: PIOGLITAZONE HCL 15 MG TABLET PO SCH (09:09)
[2020-11-19] MEDS: DEXAMETHASONE SOD PHOSPHATE 10 MG/ML VIAL IV SCH (09:09)
[2020-11-19] MEDS: METOPROLOL SUCCINATE 50 MG TAB.SR.24H PO SCH (09:18)
[2020-11-19] MEDS: AMLODIPINE BESYLATE 5 MG TABLET PO SCH (09:18)
[2020-11-19] MEDS: APIXABAN 5 MG TABLET PO SCH ×2 (09:22→17:11)
[2020-11-19 10:22] LABS: BAND % (MANUAL) 1 % (0.0-5.0); LYMPHOCYTES % (MANUAL) 11 % (16-48); MONOCYTES % (MANUAL) 7 % (0-11.0); MYELOCYTES % 6 % (0-0); NEUTROPHILS % (MANUAL) 75 (42-76)
[2020-11-19 12:00] VITALS: BP 146/65
[2020-11-19] MEDS: INSULIN REGULAR, HUMAN 100 UNIT/ML 3 ML VIAL SQ PRN ×3 (12:28→21:46)
[2020-11-19] MEDS: SOD FERRIC GLUC 125 MG in IV NS 0.9% 100 ML IV SCH (15:22)
[2020-11-19 16:00] VITALS: BP 105/66
--- NOTE | 2020-11-19 18:43 | NUR ---
RN CLOSING NOTES PATIENT CURRENTLY IN BED, RESTING. A/OX4, MALAYSIAN SPEAKING. ABLE TO MAKE NEEDS KNOWN. CURRENTLY ON 3LPM O2 THERAPY, TOLERATING WELL. O2 SAT WNL. NO S/S OF DISTRESS AT THIS TIME. SCENIC ARTIST SHOWING NSR AT THIS TIME. PATIENT HAS A JASON MIDLINE AND RFA 20G IV. BOTH IVS INTACT AND PATENT. NO S/S OF INFECTION AT THIS TIME. SAFETY MEASURES IN PLACE. HOB ELEVATED SIDE RAILS X2. BED LOCKED IN LOWEST POSITION. CALL LIGHT WITHIN REACH. WILL ENDORSE CARE TO UPCOMING SHIFT.
[2020-11-19 20:00] VITALS: BP 129/81
[2020-11-19] MEDS: INSULIN GLARGINE, 100 UNIT/ML CARTRIDGE SQ SCH (21:45)
[2020-11-20] VITALS: BP 132/84
[2020-11-20 04:00] VITALS: BP 117/82
--- NOTE | 2020-11-20 07:15 | NUR ---
RN OPENING NOTES PATIENT RECIEVED IN BED, RESTING. A/OX4, AUSTRIAN SPEAKING. ABLE TO MAKE NEEDS KNOWN. CURRENTLY ON 4LPM O2 THERAPY, TOLERATING WELL. O2 SAT WNL. NO S/S OF DISTRESS AT THIS TIME. OCCUPATIONAL HEALTH PROFESSIONAL SHOWING NSR AT THIS TIME. PATIENT HAS A JASON MIDLINE AND RFA 20G IV. BOTH IVS INTACT AND PATENT. NO S/S OF INFECTION AT THIS TIME. SAFETY MEASURES IN PLACE. HOB ELEVATED SIDE RAILS X2. BED LOCKED IN LOWEST POSITION. CALL LIGHT WITHIN REACH. WILL CONTINUE TO MONITOR AND PROVIDE CARE THROUGHOUT SHIFT.
[2020-11-20 07:27] LABS: BASOPHILS % (AUTO) 0.1 % (0.0-2.0); EOSINOPHILS % (AUTO) 0.2 % (0.0-6.0); HEMATOCRIT 31 % (33-45); HEMOGLOBIN 9.6 g/dL (11.5-14.8); LYMPHOCYTES # (AUTO) 0.7 /CMM (0.8-4.8); LYMPHOCYTES % (AUTO) 5.3 % (20.0-44.0); MEAN CORPUSCULAR HGB CONC 31 g/dl (31.0-36.0); MEAN CORPUSCULAR VOLUME 70 fL (82-100); NEUTROPHILS # (AUTO) 10.9 /CMM (1.8-8.9); NEUTROPHILS % (AUTO) 86.4 % (43.0-81.0); PLATELET COUNT (AUTO) 488 /CMM (150-450); RED BLOOD CELL COUNT(AUTO) 4.37 MIL/uL (4.0-5.2); WHITE BLOOD COUNT (AUTO) 12.6 K/uL (4.3-11.0)
[2020-11-20 07:44] LABS: CALCIUM, SERUM 8.9 mg/dL (8.5-10.1); CREATININE 0.9 mg/dL (0.6-1.3); MAGNESIUM 1.9 mg/dL (1.8-2.4); PHOSPHORUS 2.9 mg/dL (2.5-4.9)
[2020-11-20 08:00] VITALS: BP 130/60
[2020-11-20] MEDS: BLOOD SUGAR DIAGNOSTIC 1 EACH STRIP IN SCH ×4 (08:06→21:33)
[2020-11-20] MEDS: DEXAMETHASONE SOD PHOSPHATE 10 MG/ML VIAL IV SCH (09:03)
[2020-11-20] MEDS: PIOGLITAZONE HCL 15 MG TABLET PO SCH (09:04)
[2020-11-20] MEDS: GABAPENTIN 300 MG CAPSULE PO SCH ×3 (09:05→17:15)
[2020-11-20] MEDS: AMLODIPINE BESYLATE 5 MG TABLET PO SCH (09:05)
[2020-11-20] MEDS: METOPROLOL SUCCINATE 50 MG TAB.SR.24H PO SCH (09:06)
[2020-11-20] MEDS: APIXABAN 5 MG TABLET PO SCH ×2 (09:09→18:02)
[2020-11-20 11:35] LABS: BAND % (MANUAL) 3 % (0.0-5.0); LYMPHOCYTES % (MANUAL) 5 % (16-48); MONOCYTES % (MANUAL) 8 % (0-11.0)
[2020-11-20 11:36] LABS: NEUTROPHILS % (MANUAL) 84 (42-76)
[2020-11-20 12:00] VITALS: BP 134/65
[2020-11-20] MEDS: INSULIN REGULAR, HUMAN 100 UNIT/ML 3 ML VIAL SQ PRN ×2 (12:00→17:21)
[2020-11-20 16:00] VITALS: BP 122/61
[2020-11-20] MEDS ORDERED: APIXABAN 5 MG TABLET PO SCH (17:00)
--- NOTE | 2020-11-20 18:52 | NUR ---
RN CLOSING NOTES PATIENT IN BED, RESTING. A/OX4, AUSTRIAN SPEAKING. ABLE TO MAKE NEEDS KNOWN. CURRENTLY ON 4LPM O2 THERAPY VIA NC, TOLERATING WELL. O2 SAT WNL. NO S/S OF DISTRESS AT THIS TIME. CERAMICS TECHNICIAN SHOWING NSR AT THIS TIME. PATIENT HAS A JASON MIDLINE AND RFA 20G IV. BOTH IVS INTACT AND PATENT. NO S/S OF INFECTION AT THIS TIME. SAFETY MEASURES IN PLACE. HOB ELEVATED SIDE RAILS X2. BED LOCKED IN LOWEST POSITION. CALL LIGHT WITHIN REACH. WILL ENDORSE CARE TO UPCOMING SHIFT.
--- NOTE | 2020-11-20 19:56 | NUR ---
WATER PIPE INSTALLER OPENING NOTE Patient asleep in bed, A/O x4, croatian speaking only. Tele monitor reading sinus rhythm. Breathing even, unlabored on 4 LPM NC satting 95%. No acute acute distress or SOB. Skin warm, pink, dry, intact. IV site RFA 20g, patent and intact. IV site JASON midline patent and intact. No signs of redness or infiltration. BS hypoactive. Patient void via BRP. Patient on CCHO diet, appetite is good. Bed in low position, wheels locked, side rails up x2, call light within reach.
[2020-11-20 20:47] VITALS: BP 116/61
[2020-11-20] MEDS: INSULIN GLARGINE, 100 UNIT/ML CARTRIDGE SQ SCH (21:28)
[2020-11-20] MEDS: *INSULIN REGULAR(HUMULIN R)HUM 100 UNIT/ML VIAL SQ PRN (21:29)
[2020-11-21 01:18] VITALS: BP 131/70
[2020-11-21 01:19] VITALS: BP 131/70
[2020-11-21 04:56] VITALS: BP 121/61
[2020-11-21 06:25] LABS: BASOPHILS % (AUTO) 0.1 % (0.0-2.0); EOSINOPHILS % (AUTO) 0.3 % (0.0-6.0); HEMATOCRIT 31 % (33-45); HEMOGLOBIN 9.6 g/dL (11.5-14.8); LYMPHOCYTES % (AUTO) 7.5 % (20.0-44.0); MEAN CORPUSCULAR HGB CONC 31 g/dl (31.0-36.0); MEAN CORPUSCULAR VOLUME 71 fL (82-100); MONOCYTES % (AUTO) 7.4 % (2.0-12.0); NEUTROPHILS # (AUTO) 11.1 /CMM (1.8-8.9); NEUTROPHILS % (AUTO) 84.7 % (43.0-81.0); PLATELET COUNT (AUTO) 435 /CMM (150-450); RED BLOOD CELL COUNT(AUTO) 4.37 MIL/uL (4.0-5.2)
--- NOTE | 2020-11-21 06:28 | NUR ---
BLOW MOLD TECHNICIAN CLOSING NOTE Patient asleep in bed, A/O x4, norwegian speaking only. Tele monitor reading sinus rhythm. Breathing even, unlabored on 4 LPM NC O2sat 94%. No acute acute distress or SOB. IV site RFA 20g, patent and intact. IV site JASON midline patent and intact. No signs of redness or infiltration. Patient void via BRP, 2x. All needs met. Medications administered as ordered. Bed in low position, wheels locked, side rails up x2, call light within reach.
[2020-11-21 06:36] LABS: CREATININE 0.9 mg/dL (0.6-1.3); MAGNESIUM 1.9 mg/dL (1.8-2.4); PHOSPHORUS 2.8 mg/dL (2.5-4.9); POTASSIUM 4.3 mmol/L (3.5-5.1)
[2020-11-21] MEDS: BLOOD SUGAR DIAGNOSTIC 1 EACH STRIP IN SCH ×3 (06:46→16:41)
--- NOTE | 2020-11-21 07:29 | NUR ---
RN OPENING NOTES PATIENT IN BED, RESTING. A/OX4, CYMRO SPEAKING. ABLE TO MAKE NEEDS KNOWN. CURRENTLY ON 4LPM O2 THERAPY VIA NC, TOLERATING WELL. O2 SAT WNL. NO S/S OF DISTRESS AT THIS TIME. PROBATION AND PAROLE OFFICER SHOWING NSR AT THIS TIME. PATIENT HAS A JASON MIDLINE AND RFA 20G IV. BOTH IVS INTACT AND PATENT. NO S/S OF INFECTION AT THIS TIME. SAFETY MEASURES IN PLACE. HOB ELEVATED SIDE RAILS X2. BED LOCKED IN LOWEST POSITION. CALL LIGHT WITHIN REACH. WILL CONTINUE TO MONITOR AND PROVIDE CARE
[2020-11-21 08:00] VITALS: BP 130/77
[2020-11-21] MEDS: APIXABAN 5 MG TABLET PO SCH ×2 (08:33→16:41)
[2020-11-21] MEDS: GABAPENTIN 300 MG CAPSULE PO SCH ×3 (08:34→16:41)
[2020-11-21] MEDS: AMLODIPINE BESYLATE 5 MG TABLET PO SCH (08:34)
[2020-11-21] MEDS: METOPROLOL SUCCINATE 50 MG TAB.SR.24H PO SCH (08:34)
[2020-11-21] MEDS: DEXAMETHASONE SOD PHOSPHATE 10 MG/ML VIAL IV SCH (08:35)
[2020-11-21] MEDS: PIOGLITAZONE HCL 15 MG TABLET PO SCH (08:35)
[2020-11-21 12:00] VITALS: BP 115/65
[2020-11-21] MEDS: INSULIN REGULAR, HUMAN 100 UNIT/ML 3 ML VIAL SQ PRN ×2 (12:27→16:40)
[2020-11-21 14:24] LABS: BAND % (MANUAL) 1 % (0.0-5.0); LYMPHOCYTES % (MANUAL) 14 % (16-48); MONOCYTES % (MANUAL) 8 % (0-11.0); MYELOCYTES % 1 % (0-0); NEUTROPHILS % (MANUAL) 76 (42-76)
--- NOTE | 2020-11-21 17:10 | NUR ---
DISCHARGE NOTE PATIENT DISCHARGED HOME VIA PRIVATE CARE ESCORTED BY . PATIENT LEFT WITH O2, CURRENTLY ON 2LPM OXYGEN THERAPY VIA NASAL CANNULA. IVS REMOVED PRIOR TO DISCHARGE WITHOUT S/S OF EXCESSIVE BLEEDING. ALL BELONGINGS WITH PATIENT AT TIME OF DISCHARGE. DISCHARGE EDUCATION PROVIDED TO PATIENT.
[2020-11-23] MEDS ORDERED: APIXABAN 5 MG TABLET PO SCH (17:00)
== END 2020-11-21 17:05 | disposition home health service (06) | DRG 177 ==
LOC: ER 08:57 → TRANSITION 16:34 → ICU 11-15 06:29 → TELE1 11-16 14:19
PROVIDERS: ADMIT Nurse Practitioner Acute Care; ATTEND Student in an Organized Health Care Education/Training Program
PROC: XW13325 Transfusion of Convalescent Plasma (Nonautologous) into Peripheral Vein, Percutaneous Approach, New Technology Group 5 (ICD-10-PCS; principal; 2020-11-15)
PROC: 05HC33Z Insertion of Infusion Device into Left Basilic Vein, Percutaneous Approach (ICD-10-PCS; 2020-11-16)
DX: U07.1 COVID-19 (principal); J96.01 Acute respiratory failure with hypoxia; I26.92 Saddle embolus of pulmonary artery without acute cor pulmonale; I50.33 Acute on chronic diastolic (congestive) heart failure; J12.82 Pneumonia due to coronavirus disease 2019; I21.A1 Myocardial infarction type 2; N17.0 Acute kidney failure with tubular necrosis; E87.1 Hypo-osmolality and hyponatremia; E87.2 Acidosis; I11.0 Hypertensive heart disease with heart failure; Z79.4 Long term (current) use of insulin; E11.42 Type 2 diabetes mellitus with diabetic polyneuropathy; D50.9 Iron deficiency anemia, unspecified; E11.65 Type 2 diabetes mellitus with hyperglycemia; E66.01 Morbid (severe) obesity due to excess calories; E05.90 Thyrotoxicosis, unspecified without thyrotoxic crisis or storm; E78.5 Hyperlipidemia, unspecified; E83.42 Hypomagnesemia
CPT/HCPCS: 36415; 71045-TC; 80048-TC; 80053-TC; 80061-TC; 81001; 82248-TC; 82550-TC; 82570-TC; 82728-TC; 82962-TC; 83540-TC; 83605-TC; 83615-TC; 83735-TC; 83880; 83970; 84100-TC; 84155; 84155-TC; 84165; 84300-TC; 84439-TC; 84443-TC; 84484-TC; 85025-TC; 85378-TC; 85730-TC; 86140-TC; 86850-TC; 87040-TC; 87081-TC; 93308-TC; 93970-TC; 97116-TC; 97530-TC; C9803; G0378; J1100; J1644; J1815; J1940; J2405; J2916; J2997; J3475; J7030; J7040; J7050; P9017-BL; Q9967

== ENCOUNTER 2022-12-11 19:48 | Emergency (ER) | payer OTHER ==
[~2022-12-11] VITALS: Ht 170.2 cm; Wt 91.6 kg
[~2022-12-11 19:48] MED LIST: AMLO-212 PO; GABA600T12 PO; GLIP10TA11 PO; INSU100V7 SUBCUT; LOSA100T31 PO; METF-441 PO; METO-357 PO; PIOG30TA10 PO
--- NOTE | 2022-12-11 20:00 | NUR ---
BIBRA 89 FROM HOME C/O DIZZINESS, N/V, ABD PAIN X4 DAYS. PLACED IN BED, AAOX4, BREATHING EVEN AND UNLABORED SATURATING AT 98%RA.
--- NOTE | 2022-12-11 20:25 | NUR ---
AT BEDSIDE FOR EVAL.
[2022-12-11] MEDS ORDERED: IV NS 0.9% 1,000 ML BAG IV ONE (20:30)
--- NOTE | 2022-12-11 20:30 | NUR ---
BLOOD DRAWN AND SENT TO LAB
[2022-12-11 20:39] LABS: BASOPHILS % (AUTO) 0.3 % (0.0-2.0); EOSINOPHILS % (AUTO) 0.1 % (0.0-6.0); HEMATOCRIT 28 % (33-45); LYMPHOCYTES # (AUTO) 0.3 K/uL (0.8-4.8); LYMPHOCYTES % (AUTO) 3.5 % (20.0-44.0); MEAN CORPUSCULAR HGB CONC 32 g/dl (31.0-36.0); MEAN CORPUSCULAR VOLUME 85 fL (82-100); MONOCYTES # (AUTO) 0.3 K/uL (0.1-1.30); MONOCYTES % (AUTO) 2.9 % (2.0-12.0); NEUTROPHILS # (AUTO) 9.2 K/uL (1.8-8.9); NEUTROPHILS % (AUTO) 93.2 % (43.0-81.0); PLATELET COUNT (AUTO) 152 K/uL (150-450); WHITE BLOOD COUNT (AUTO) 9.8 K/uL (4.3-11.0)
[2022-12-11 21:06] LABS: ALBUMIN 1.5 g/dL (3.4-5.0); BILIRUBIN,TOTAL 0.4 mg/dL (0.2-1.0); CALCIUM, SERUM 8.2 mg/dL (8.5-10.1); POTASSIUM 3.3 mmol/L (3.5-5.1); TOTAL PROTEIN, SERUM 5.6 g/dL (6.4-8.2)
[2022-12-11] MEDS ORDERED: CT SWABBABLE VALVE TRANS SET 1 EA INFUS.SET MC ONE (22:49)
[2022-12-11] MEDS ORDERED: IOHEXOL-300 100 ML VIAL IV ONE (22:49)
[2022-12-11] MEDS ORDERED: IV NS 0.9% 250 ML IV ONE (22:49)
--- NOTE | 2022-12-11 23:09 | NUR ---
PT RETURNED TO ER BED FROM CT
--- NOTE | 2022-12-11 23:13 | NUR ---
SWAB FOR COVID19 SENT TO LAB
--- NOTE | 2022-12-11 23:23 | NUR ---
FAXED CLINICALS TO [facility] FAX [phone]
[2022-12-11] MEDS ORDERED: IV NS 0.9% 1,000 ML IV ONE (23:30)
[2022-12-11 23:49] LABS: BILIRUBIN,DIRECT 0.2 mg/dL (0.0-0.2)
--- NOTE | 2022-12-12 00:17 | NUR ---
URINE COLLECTED AND SENT TO LAB
[2022-12-12] MEDS ORDERED: CEFTRIAXONE 1GM BAG (ER ONLY) 50 ML IV ONE (00:21)
[2022-12-12] MEDS ORDERED: MORPHINE SULFATE INJ 4 MG/ML DISP.SYRIN ONE (00:21)
[2022-12-12] MEDS ORDERED: ONDANSETRON HCL/PF 4 MG/2 ML VIAL ONE (00:21)
[2022-12-12] MEDS ORDERED: CEFTRIAXONE 1GM BAG (ER ONLY) 1 GM/50 ML PIGGYBACK IV ONE (00:30)
[2022-12-12] MEDS ORDERED: ONDANSETRON HCL/PF 4 MG/2 ML VIAL IV ONE (00:30)
[2022-12-12] MEDS ORDERED: MORPHINE SULFATE INJ 2 MG/ML DISP.SYRIN IV ONE (00:30)
[2022-12-12 00:32] LABS: BILIRUBIN,URINE NEGATIVE (NEGATIVE); COLOR,URINE YELLOW (YELLOW); LEUKOCYTE ESTERASE ,URINE NEGATIVE (NEGATIVE); NITRITE, URINE POSITIVE (NEGATIVE); PROTEIN,URINE NEGATIVE (NEGATIVE); UGLUCOSE TRACE mg/dL (NEGATIVE); UROBILINOGEN,URINE 0.2 EU/dL (0.2)
[2022-12-12 00:42] LABS: BACTERIA,URINE Moderate /HPF (None Seen); RBC,URINE NONE SEEN /HPF (0-2)
[2022-12-12 00:43] LABS: SQUAMOUS EPITHELIAL CELL,UR 0-2 /HPF (None Seen)
--- NOTE | 2022-12-12 01:04 | NUR ---
CORRECTION: END TIME FOR CEFTRIAXONE IV IS [id number].
--- NOTE | 2022-12-12 01:09 | NUR ---
FAXED COVID RESULT TO [facility] FAX [phone]
--- NOTE | 2022-12-12 01:18 | NUR ---
CORRECTION: END TIME FOR IV NS IS [id number].
--- NOTE | 2022-12-12 01:41 | NUR ---
[facility] [address] AT [place] [phone] # FOR REPORT ACCEPTING AUTH #[id number]
--- NOTE | 2022-12-12 01:46 | NUR ---
[facility] CALLED ETA 20-25 MINUTES
--- NOTE | 2022-12-12 02:10 | NUR ---
REPORT GIVEN TO [facility] FOR PT TO D/C TO [facility]. [facility] AT PT'S BEDSIDE
--- NOTE | 2022-12-12 02:16 | NUR ---
report give to chrissy SPRING at [place]
[2022-12-12 02:43] VITALS: BP 119/70
== END 2022-12-12 02:43 | disposition short-term general hospital (02) ==
LOC: ER 19:50
DX: R53.1 Weakness (principal); R11.2 Nausea with vomiting, unspecified; R42 Dizziness and giddiness; I49.3 Ventricular premature depolarization; C56.9 Malignant neoplasm of unspecified ovary; C78.7 Secondary malignant neoplasm of liver and intrahepatic bile duct; Z79.899 Other long term (current) drug therapy; Z85.028 Personal history of other malignant neoplasm of stomach; E11.9 Type 2 diabetes mellitus without complications; Z20.822 Contact with and (suspected) exposure to COVID-19; Z79.4 Long term (current) use of insulin; Z79.84 Long term (current) use of oral hypoglycemic drugs; R00.0 Tachycardia, unspecified; E87.20 Acidosis, unspecified; E11.65 Type 2 diabetes mellitus with hyperglycemia
CPT/HCPCS: 99291; 74177; 71045; 96361; 87426; 93005; 82248; 85025; 87086; 83605 ×2; 83690; 81001; 36415; 80053; 84484 ×2; 87040 ×3; 87081; 96365; 96375; J7030; J7050; Q9967; C9803; J2270; J2405; J0696

== ENCOUNTER 2022-12-27 11:26 | Inpatient (IN) | payer OTHER ==
[~2022-12-27] VITALS: Ht 160 cm; Wt 83.9 kg
[2022-12-27] MEDS ORDERED: IV NS 0.9% 500 ML BAG IV ONE (12:00)
[2022-12-27] MEDS ORDERED: MORPHINE SULFATE INJ 2 MG/ML DISP.SYRIN IV ONE (12:00)
[2022-12-27] MEDS ORDERED: ONDANSETRON HCL/PF 4 MG/2 ML VIAL IVP ONE (12:00)
[2022-12-27] MEDS ORDERED: ONDANSETRON HCL/PF 4 MG/2 ML VIAL ONE (12:02)
[2022-12-27] MEDS ORDERED: MORPHINE SULFATE INJ 2 MG/ML DISP.SYRIN ONE (12:02)
[2022-12-27 12:20] LABS: BASOPHILS # (AUTO) 0.1 K/uL (0.0-0.2); BASOPHILS % (AUTO) 0.3 % (0.0-2.0); HEMATOCRIT 26 % (33-45); HEMOGLOBIN 7.7 g/dL (11.5-14.8); LYMPHOCYTES # (AUTO) 0.7 K/uL (0.8-4.8); LYMPHOCYTES % (AUTO) 3.4 % (20.0-44.0); MEAN CORPUSCULAR HGB CONC 30 g/dl (31.0-36.0); MEAN CORPUSCULAR VOLUME 89 fL (82-100); MONOCYTES # (AUTO) 1.8 K/uL (0.1-1.30); MONOCYTES % (AUTO) 9.2 % (2.0-12.0); NEUTROPHILS # (AUTO) 16.8 K/uL (1.8-8.9); NEUTROPHILS % (AUTO) 87.1 % (43.0-81.0); PLATELET COUNT (AUTO) 376 K/uL (150-450); RED BLOOD CELL COUNT(AUTO) 2.86 MIL/uL (4.0-5.2); WHITE BLOOD COUNT (AUTO) 19.3 K/uL (4.3-11.0)
[2022-12-27 12:26] LABS: BILIRUBIN,URINE NEGATIVE (NEGATIVE); COLOR,URINE DARK YELLOW (YELLOW); LEUKOCYTE ESTERASE ,URINE 2+ (NEGATIVE); NITRITE, URINE NEGATIVE (NEGATIVE); PH,URINE 8.5 (5.0-8.0); PROTEIN,URINE NEGATIVE (NEGATIVE); UGLUCOSE NEGATIVE (NEGATIVE); UROBILINOGEN,URINE 0.2 EU/dL (0.2)
[2022-12-27 12:30] LABS: BACTERIA,URINE Few /HPF (None Seen); SQUAMOUS EPITHELIAL CELL,UR Few /HPF (None Seen); WBC,URINE 21-50 /HPF (0-3)
[2022-12-27 12:33] LABS: CALCIUM, SERUM 8.3 mg/dL (8.5-10.1); CREATININE 0.7 mg/dL (0.6-1.3); POTASSIUM 3.8 mmol/L (3.5-5.1)
[2022-12-27 12:39] LABS: BILIRUBIN,DIRECT 0.2 mg/dL (0.0-0.2); BILIRUBIN,TOTAL 0.4 mg/dL (0.2-1.0); TOTAL PROTEIN, SERUM 5.5 g/dL (6.4-8.2)
[2022-12-27 12:44] LABS: ALBUMIN 1.2 g/dL (3.4-5.0)
[2022-12-27] MEDS ORDERED: CEFTRIAXONE 1GM BAG (ER ONLY) 1 GM/50 ML PIGGYBACK IV ONE ×2 (13:00→14:30)
[2022-12-27] MEDS ORDERED: DICL100G26 TP (13:50)
[2022-12-27] MEDS ORDERED: FERR325T23 PO (13:50)
[2022-12-27] MEDS ORDERED: PANT20TA17 PO (13:50)
[2022-12-27] MEDS ORDERED: POLY15DR40 EACHEYE (13:50)
[2022-12-27] MEDS ORDERED: BLOO-668 IN (13:50)
[2022-12-27] MEDS ORDERED: GABA300C PO (13:50)
[2022-12-27] MEDS ORDERED: SENN-261 PO (13:50)
[2022-12-27] MEDS ORDERED: PROC10TA29 PO (13:50)
[2022-12-27] MEDS ORDERED: CLOT15CR5 TP (13:50)
[2022-12-27] MEDS ORDERED: ACET-2605 PO (13:50)
[2022-12-27] MEDS ORDERED: HYDR-4303 PO (13:50)
[2022-12-27] MEDS ORDERED: GLIP10TA11 PO (13:57)
[2022-12-27] MEDS ORDERED: LOSA100T31 PO (13:57)
[2022-12-27] MEDS ORDERED: APIX5TAB PO (13:57)
[2022-12-27] MEDS ORDERED: AMLO-212 PO (13:57)
[2022-12-27] MEDS ORDERED: PIOG30TA10 PO (13:57)
[2022-12-27] MEDS ORDERED: METO-357 PO (13:57)
[2022-12-27] MEDS ORDERED: METF-441 PO (13:57)
[2022-12-27] MEDS ORDERED: INSU100V7 SQ (13:57)
[2022-12-27] MEDS ORDERED: ASPI-1169 PO (13:57)
[2022-12-27] MEDS ORDERED: IV LR 1000 ML 1,000 ML BAG IV ONE (14:30)
[2022-12-27] MEDS ORDERED: CEFTRIAXONE 1GM BAG (ER ONLY) 50 ML IV ONE (14:34)
[2022-12-27] MEDS ORDERED: MORPHINE SULFATE INJ 4 MG/ML DISP.SYRIN ONE (16:56)
[2022-12-27] MEDS: MORPHINE SULFATE INJ 2 MG/ML DISP.SYRIN IV PRN ×2 (17:01→21:52)
[2022-12-27 20:00] VITALS: BP 151/71
[2022-12-27] MEDS ORDERED: ACETAMINOPHEN 325 MG TABLET PO PRN (21:00)
[2022-12-27] MEDS ORDERED: MAGNESIUM HYDROXIDE 30 ML UDC PO PRN (21:00)
[2022-12-27] MEDS ORDERED: ONDANSETRON HCL/PF 4 MG/2 ML VIAL IVP PRN (21:00)
[2022-12-27] MEDS ORDERED: MAG HYDROX/AL HYDROX/SIMETH 30 ML UDC PO PRN (21:00)
[2022-12-27] MEDS ORDERED: SENNOSIDES 8.6 MG TABLET PO PRN (21:00)
[2022-12-27] MEDS ORDERED: IV D5/0.45 NACL 1,000 ML IV PRN (21:00)
[2022-12-27] MEDS ORDERED: PROCHLORPERAZINE MALEATE 10 MG TABLET PO PRN (21:00)
[2022-12-27] MEDS ORDERED: CLOTRIMAZOLE/BETAMETASONE DIPROPIONATE 15 GM TUBE TP PRN (21:00)
[2022-12-27] MEDS ORDERED: Z GUARD REMEDY 4 OZ OINT TP PRN (21:00)
[2022-12-27] MEDS ORDERED: ZOLPIDEM TARTRATE 5 MG TABLET PO PRN (21:00)
[2022-12-27] MEDS ORDERED: HYDROCODONE/APAP 5/325MG TABLET PO PRN (21:00)
[2022-12-27] MEDS ORDERED: POLYVINYL ALCOHOL 15 ML BOTTLE EACHEYE PRN (21:30)
[2022-12-27] MEDS: INSULIN GLARGINE, 100 UNIT/ML CARTRIDGE SQ SCH (22:00)
[2022-12-28] MEDS: MORPHINE SULFATE INJ 2 MG/ML DISP.SYRIN IV PRN ×2 (02:52→14:04)
[2022-12-28 06:16] LABS: BASOPHILS # (AUTO) 0.1 K/uL (0.0-0.2); BASOPHILS % (AUTO) 0.2 % (0.0-2.0); HEMATOCRIT 24 % (33-45); HEMOGLOBIN 7.3 g/dL (11.5-14.8); LYMPHOCYTES # (AUTO) 0.6 K/uL (0.8-4.8); LYMPHOCYTES % (AUTO) 2.6 % (20.0-44.0); MEAN CORPUSCULAR HGB CONC 30 g/dl (31.0-36.0); MEAN CORPUSCULAR VOLUME 89 fL (82-100); MONOCYTES % (AUTO) 4.5 % (2.0-12.0); NEUTROPHILS # (AUTO) 20.5 K/uL (1.8-8.9); NEUTROPHILS % (AUTO) 92.7 % (43.0-81.0); PLATELET COUNT (AUTO) 377 K/uL (150-450); RED BLOOD CELL COUNT(AUTO) 2.69 MIL/uL (4.0-5.2); WHITE BLOOD COUNT (AUTO) 22.1 K/uL (4.3-11.0)
[2022-12-28 06:40] LABS: CALCIUM, SERUM 7.9 mg/dL (8.5-10.1); CARBON DIOXIDE 20 mmol/L (21-32); CHLORIDE 100 mmol/L (98-107); CREATININE 0.8 mg/dL (0.6-1.3); GLUCOSE 248 mg/dL (74-106); MAGNESIUM 1.5 mg/dL (1.8-2.4); PHOSPHORUS 3.5 mg/dL (2.5-4.9); POTASSIUM 4.3 mmol/L (3.5-5.1); SODIUM SERUM 135 mmol/L (136-145); UREA NITROGEN, BLOOD 6 mg/dL (7-18)
[2022-12-28 07:00] VITALS: BP 144/64
[2022-12-28] MEDS: PANTOPRAZOLE 40 MG TABLET.DR PO SCH (07:30)
[2022-12-28] MEDS: ASPIRIN 81 MG TAB.CHEW PO SCH (09:00)
[2022-12-28] MEDS: FERROUS SULFATE (325 MG) 325 MG/TAB TABLET PO SCH ×2 (09:00→17:00)
[2022-12-28] MEDS: METOPROLOL SUCCINATE 50 MG TAB.SR.24H PO SCH (09:00)
[2022-12-28] MEDS: APIXABAN 5 MG TABLET PO SCH ×2 (09:00→21:19)
[2022-12-28] MEDS: AMLODIPINE BESYLATE 5 MG TABLET PO SCH (09:00)
[2022-12-28] MEDS: GABAPENTIN 300 MG CAPSULE PO SCH ×3 (09:00→17:00)
[2022-12-28] MEDS: LOSARTAN POTASSIUM 50 MG TABLET PO SCH (09:00)
[2022-12-28] MEDS: PANTOPRAZOLE 40 MG VIAL IV SCH (09:51)
[2022-12-28] MEDS: BLOOD SUGAR DIAGNOSTIC 1 EACH STRIP IN SCH ×2 (09:54→17:00)
[2022-12-28] MEDS: Magnesium 1GM/D5W 100ML PREMIX 100 ML IV SCH ×2 (10:37→11:19)
[2022-12-28] MEDS: CEFTRIAXONE 1 G in IV D5W 50 ML IV SCH (14:02)
[2022-12-28 16:00] VITALS: BP 149/64
[2022-12-28 20:00] VITALS: BP 140/75
[2022-12-28] MEDS: INSULIN GLARGINE, 100 UNIT/ML CARTRIDGE SQ SCH (21:20)
[2022-12-29] MEDS: MORPHINE SULFATE INJ 2 MG/ML DISP.SYRIN IV PRN ×2 (00:55→06:30)
[2022-12-29 04:00] VITALS: BP 120/58
[2022-12-29] MEDS: PANTOPRAZOLE 40 MG TABLET.DR PO SCH (06:10)
[2022-12-29 06:57] LABS: HEMATOCRIT 24 % (33-45); HEMOGLOBIN 7.1 g/dL (11.5-14.8); LYMPHOCYTES # (AUTO) 0.4 K/uL (0.8-4.8); LYMPHOCYTES % (AUTO) 1.5 % (20.0-44.0); MEAN CORPUSCULAR HGB CONC 30 g/dl (31.0-36.0); MEAN CORPUSCULAR VOLUME 90 fL (82-100); MONOCYTES # (AUTO) 1.5 K/uL (0.1-1.30); MONOCYTES % (AUTO) 6.5 % (2.0-12.0); NEUTROPHILS # (AUTO) 21.5 K/uL (1.8-8.9); PLATELET COUNT (AUTO) 314 K/uL (150-450); RED BLOOD CELL COUNT(AUTO) 2.63 MIL/uL (4.0-5.2); WHITE BLOOD COUNT (AUTO) 23.4 K/uL (4.3-11.0)
[2022-12-29 07:23] LABS: CALCIUM, SERUM 7.9 mg/dL (8.5-10.1); CARBON DIOXIDE 24 mmol/L (21-32); CHLORIDE 102 mmol/L (98-107); CREATININE 0.8 mg/dL (0.6-1.3); MAGNESIUM 1.8 mg/dL (1.8-2.4); PHOSPHORUS 2.6 mg/dL (2.5-4.9); POTASSIUM 3.7 mmol/L (3.5-5.1); SODIUM SERUM 135 mmol/L (136-145); UREA NITROGEN, BLOOD 9 mg/dL (7-18)
[2022-12-29 07:40] LABS: GLUCOSE 361 mg/dL (74-106)
[2022-12-29 08:00] VITALS: BP_SYST 136; BP_SYST 87; BP_DIAS 52; BP_DIAS 91
[2022-12-29] MEDS: FERROUS SULFATE (325 MG) 325 MG/TAB TABLET PO SCH ×2 (08:37→16:59)
[2022-12-29] MEDS: PANTOPRAZOLE 40 MG VIAL IV SCH (08:37)
[2022-12-29] MEDS: BLOOD SUGAR DIAGNOSTIC 1 EACH STRIP IN SCH (08:37)
[2022-12-29] MEDS: GABAPENTIN 300 MG CAPSULE PO SCH ×3 (08:37→16:59)
[2022-12-29] MEDS: ASPIRIN 81 MG TAB.CHEW PO SCH (08:38)
[2022-12-29] MEDS: AMLODIPINE BESYLATE 5 MG TABLET PO SCH (08:39)
[2022-12-29] MEDS: METOPROLOL SUCCINATE 50 MG TAB.SR.24H PO SCH (08:39)
[2022-12-29] MEDS: LOSARTAN POTASSIUM 50 MG TABLET PO SCH (08:40)
[2022-12-29] MEDS: APIXABAN 5 MG TABLET PO SCH (08:41)
[2022-12-29] MEDS ORDERED: *INSULIN REGULAR(HUMULIN R)HUM 100 UNIT/ML VIAL SQ PRN (09:30)
[2022-12-29] MEDS ORDERED: DEXTROSE 50%-WATER 50 ML DISP.SYRIN IV PRN (09:30)
[2022-12-29] MEDS: BLOOD SUGAR DIAGNOSTIC 1 EACH STRIP VI SCH ×4 (10:07→22:39)
[2022-12-29] MEDS: IV NS 0.9% 1,000 ML IV SCH ×2 (10:07→18:31)
[2022-12-29] MEDS: INSULIN REGULAR, HUMAN 100 UNIT/ML 3 ML VIAL SQ PRN ×3 (10:13→16:53)
[2022-12-29] MEDS: CEFTRIAXONE 1 G in IV D5W 50 ML IV SCH (14:34)
[2022-12-29] MEDS ORDERED: CT SWABBABLE VALVE TRANS SET 1 EA INFUS.SET MC ONE (14:51)
[2022-12-29] MEDS ORDERED: IOHEXOL-300 100 ML VIAL IV ONE (14:51)
[2022-12-29] MEDS ORDERED: IV NS 0.9% 250 ML IV ONE (14:51)
[2022-12-29 16:00] VITALS: BP 101/76
[2022-12-29 16:06] LABS: THYROID STIMULATING HORMONE 7.718 uIU/mL (0.358-3.74)
[2022-12-29] MEDS ORDERED: HEPARIN INFUSION/D5W 500 ML IV PRN (20:30)
[2022-12-29] MEDS: INSULIN GLARGINE, 100 UNIT/ML CARTRIDGE SQ SCH (22:00)
[2022-12-29] MEDS ORDERED: EPINEPHRINE (1:10,000) SYRINGE 1 MG/10 ML DISP.SYRIN IVP ONE (23:56)
[2022-12-30] VITALS (23 sets, daily range): BP systolic 0–128; BP diastolic 0–88
[2022-12-30] MEDS ORDERED: PROPOFOL 100 ML IV PRN (00:30)
[2022-12-30 01:05] LABS: BASOPHILS % (AUTO) 0.1 % (0.0-2.0); EOSINOPHILS % (AUTO) 0.7 % (0.0-6.0); HEMATOCRIT 22 % (33-45); LYMPHOCYTES # (AUTO) 2.4 K/uL (0.8-4.8); LYMPHOCYTES % (AUTO) 9.8 % (20.0-44.0); MEAN CORPUSCULAR HGB CONC 26 g/dl (31.0-36.0); MEAN CORPUSCULAR VOLUME 104 fL (82-100); MONOCYTES # (AUTO) 1.1 K/uL (0.1-1.30); MONOCYTES % (AUTO) 4.3 % (2.0-12.0); NEUTROPHILS # (AUTO) 20.6 K/uL (1.8-8.9); NEUTROPHILS % (AUTO) 85.1 % (43.0-81.0); PLATELET COUNT (AUTO) 187 K/uL (150-450); RED BLOOD CELL COUNT(AUTO) 2.12 MIL/uL (4.0-5.2); WHITE BLOOD COUNT (AUTO) 24.3 K/uL (4.3-11.0)
[2022-12-30 01:16] LABS: ALANINE AMINOTRANSFERASE 100 U/L (12-78); ALKALINE PHOSPHATASE 270 U/L (46-116); ASPARTATE AMINOTRANSFERASE 784 U/L (15-37); BILIRUBIN,TOTAL 0.3 mg/dL (0.2-1.0); CALCIUM, SERUM 9.5 mg/dL (8.5-10.1); CHLORIDE 106 mmol/L (98-107); CREATININE 1.9 mg/dL (0.6-1.3); GLUCOSE 135 mg/dL (74-106); HEMOGLOBIN 5.7 g/dL (11.5-14.8); POTASSIUM 4.9 mmol/L (3.5-5.1); SODIUM SERUM 142 mmol/L (136-145); TOTAL PROTEIN, SERUM 4.6 g/dL (6.4-8.2); UREA NITROGEN, BLOOD 16 mg/dL (7-18)
[2022-12-30] MEDS ORDERED: NOREPINEPHRINE 8MG/250ML RTU 250 ML IV ONE (01:24)
[2022-12-30] MEDS ORDERED: NOREPINEPHRINE 8 MG in IV NS 0.9% 242 ML IV PRN (01:30)
[2022-12-30 01:38] LABS: ALBUMIN 0.9 g/dL (3.4-5.0); CARBON DIOXIDE 6 mmol/L (21-32)
[2022-12-30 02:29] LABS: ABG BASE EXCESS -30.3 mmol/L; ABG PCO2 27.7 mmHg (35.0-45.0); ABG PH 6.719 (7.350-7.450); ABG PO2 438.3 mmHg (75.0-100.0); COHb 0.3 % (0.5-1.5); O2Hb 98.3 % (94.0-97.0); SITE, ABG Right Radial
[2022-12-30] MEDS: IV NS 0.9% 1,000 ML IV SCH (02:30)
[2022-12-30] MEDS ORDERED: SODIUM BICARBONATE SYR 50 MEQ/50 ML DISP.SYRIN ONE ×3 (03:17→03:22)
[2022-12-30] MEDS ORDERED: VASOPRESSIN INJ 20 UNIT/ML VIAL ONE (03:18)
[2022-12-30 03:20] LABS: LYMPHOCYTES % (MANUAL) 14 % (16-48); METAMYELOCYTES % 2 % (0-0); MONOCYTES % (MANUAL) 5 % (0-11.0); MYELOCYTES % 2 % (0-0); NEUTROPHILS % (MANUAL) 77 (42-76)
[2022-12-30] MEDS ORDERED: NOREPINEPHRINE 4 MG/4 ML AMPUL IV ONE ×3 (03:23→04:36)
[2022-12-30] MEDS ORDERED: Sodium Bicarbonate 150 MEQ in IV D5/ 0.9% NACL 1,000 ML IV PRN (03:30)
[2022-12-30] MEDS ORDERED: SODIUM BICARBONATE SYR 50 MEQ/50 ML DISP.SYRIN IV ONE (03:30)
[2022-12-30] MEDS ORDERED: VASOPRESSIN INJ 40 UNIT in IV NS 0.9% 38 ML IV PRN (03:30)
[2022-12-30] MEDS ORDERED: NOREPINEPHRINE 32 MG in IV NS 0.9% 218 ML IV PRN (04:30)
[2022-12-30] MEDS ORDERED: PHENYLEPHRINE 100 MG in IV NS 0.9% 240 ML IV PRN (05:30)
[2022-12-30] MEDS ORDERED: PHENYLEPHRINE 10 MG/ML VIAL ONE (05:34)
[2022-12-30] MEDS ORDERED: IV NS 0.9% 1,000 ML IV ONE (06:30)
[2022-12-30 07:07] LABS: IMMUNOGLOBULIN A, SERUM 297 mg/dL (64-422); IMMUNOGLOBULIN G, SERUM 1353 mg/dL (586-1602); IMMUNOGLOBULIN M, SERUM 53 mg/dL (26-217)
[2022-12-30] MEDS: PANTOPRAZOLE 40 MG TABLET.DR PO SCH (07:30)
[2022-12-30] MEDS: BLOOD SUGAR DIAGNOSTIC 1 EACH STRIP VI SCH (07:45)
[2022-12-30] MEDS: LOSARTAN POTASSIUM 50 MG TABLET PO SCH (08:35)
[2022-12-30] MEDS: ASPIRIN 81 MG TAB.CHEW PO SCH (08:35)
[2022-12-30] MEDS: GABAPENTIN 300 MG CAPSULE PO SCH (08:36)
[2022-12-30] MEDS: FERROUS SULFATE (325 MG) 325 MG/TAB TABLET PO SCH (08:36)
[2022-12-30] MEDS: AMLODIPINE BESYLATE 5 MG TABLET PO SCH (08:37)
[2022-12-30] MEDS: METOPROLOL SUCCINATE 50 MG TAB.SR.24H PO SCH (08:37)
[2022-12-30] MEDS ORDERED: HYDROCORTISONE SOD SUCCINATE 100 MG/2 ML VIAL IV SCH (09:00)
[2022-12-30] MEDS ORDERED: PANTOPRAZOLE 40 MG VIAL IV SCH (09:00)
[2022-12-30] MEDS ORDERED: MEROPENEM 500 MG in IV NS 0.9% 50 ML IV SCH (09:00)
[2022-12-30 09:22] LABS: BASOPHILS # (AUTO) 0.1 K/uL (0.0-0.2); BASOPHILS % (AUTO) 0.4 % (0.0-2.0); EOSINOPHILS % (AUTO) 0.5 % (0.0-6.0); HEMATOCRIT 24 % (33-45); LYMPHOCYTES # (AUTO) 2.5 K/uL (0.8-4.8); LYMPHOCYTES % (AUTO) 11.7 % (20.0-44.0); MEAN CORPUSCULAR HGB CONC 26 g/dl (31.0-36.0); MEAN CORPUSCULAR VOLUME 107 fL (82-100); MONOCYTES # (AUTO) 0.6 K/uL (0.1-1.30); MONOCYTES % (AUTO) 2.7 % (2.0-12.0); NEUTROPHILS # (AUTO) 18.4 K/uL (1.8-8.9); NEUTROPHILS % (AUTO) 84.7 % (43.0-81.0); RED BLOOD CELL COUNT(AUTO) 2.24 MIL/uL (4.0-5.2)
[2022-12-30 09:27] LABS: CALCIUM, SERUM 7.9 mg/dL (8.5-10.1); CHLORIDE 105 mmol/L (98-107); CREATININE 1.9 mg/dL (0.6-1.3); MAGNESIUM 2.4 mg/dL (1.8-2.4); SODIUM SERUM 141 mmol/L (136-145); UREA NITROGEN, BLOOD 16 mg/dL (7-18)
[2022-12-30 09:35] LABS: HEMOGLOBIN 6.2 g/dL (11.5-14.8)
[2022-12-30] MEDS ORDERED: IV NS 0.9% 1,000 ML IV PRN (09:39)
[2022-12-30] MEDS ORDERED: VANCOMYCIN 1 GM in IV D5W 250 ML IV ONE (10:00)
[2022-12-30] MEDS ORDERED: Sodium Bicarbonate 150 MEQ in IV D5/ 0.9% NACL 1,000 ML IV SCH (10:07)
[2022-12-30 10:29] LABS: CARBON DIOXIDE 6 mmol/L (21-32); GLUCOSE 374 mg/dL (74-106); PHOSPHORUS 9.1 mg/dL (2.5-4.9)
[2022-12-30 12:27] LABS: BAND % (MANUAL) 11 % (0.0-5.0); LYMPHOCYTES % (MANUAL) 13 % (16-48); METAMYELOCYTES % 5 % (0-0)
[2022-12-30 12:28] LABS: MYELOCYTES % 6 % (0-0)
[2022-12-30 12:29] LABS: MONOCYTES % (MANUAL) 8 % (0-11.0); NEUTROPHILS % (MANUAL) 57 (42-76)
[2022-12-30 12:31] LABS: PLATELET COUNT (AUTO) 245 K/uL (150-450)
[2022-12-30 12:56] LABS: WHITE BLOOD COUNT (AUTO) 21.8 K/uL (4.3-11.0)
[2022-12-30 17:06] LABS: *SPE A/G RATIO 0.4 (0.7-1.7); *SPE ALPHA-1-GLOBULIN 0.5 g/dL (0.0-0.4); *SPE BETA GLOBULIN 0.9 g/dL (0.7-1.3); *SPE M-SPIKE Not Observed g/dL (Not Observed)
[2022-12-31] MEDS ORDERED: VANCOMYCIN 0.75 GM in IV D5W 250 ML IV SCH (10:00)
== END 2022-12-30 13:19 | DRG 871 ==
LOC: ER 11:31 → MED 18:54 → ICU 12-30 00:04
PROVIDERS: ADMIT Student in an Organized Health Care Education/Training Program; ATTEND Student in an Organized Health Care Education/Training Program
PROC: 5A1935Z Respiratory Ventilation, Less than 24 Consecutive Hours (ICD-10-PCS; principal; 2022-12-30)
PROC: 0BH17EZ Insertion of Endotracheal Airway into Trachea, Via Natural or Artificial Opening (ICD-10-PCS; 2022-12-30)
PROC: 30233N1 Transfusion of Nonautologous Red Blood Cells into Peripheral Vein, Percutaneous Approach (ICD-10-PCS; 2022-12-30)
PROC: 5A2204Z Restoration of Cardiac Rhythm, Single (ICD-10-PCS; 2022-12-30)
PROC: 02HV33Z Insertion of Infusion Device into Superior Vena Cava, Percutaneous Approach (ICD-10-PCS; 2022-12-30)
PROC: B548ZZA Ultrasonography of Superior Vena Cava, Guidance (ICD-10-PCS; 2022-12-30)
DX: A41.9 Sepsis, unspecified organism (principal); I26.92 Saddle embolus of pulmonary artery without acute cor pulmonale; N17.0 Acute kidney failure with tubular necrosis; R65.21 Severe sepsis with septic shock; J96.90 Respiratory failure, unspecified, unspecified whether with hypoxia or hypercapnia; I50.33 Acute on chronic diastolic (congestive) heart failure; C16.9 Malignant neoplasm of stomach, unspecified; C79.60 Secondary malignant neoplasm of unspecified ovary; N39.0 Urinary tract infection, site not specified; E87.1 Hypo-osmolality and hyponatremia; E87.20 Acidosis, unspecified; D68.9 Coagulation defect, unspecified; E44.0 Moderate protein-calorie malnutrition; S36.119A Unspecified injury of liver, initial encounter; R10.9 Unspecified abdominal pain; I11.0 Hypertensive heart disease with heart failure; Z85.028 Personal history of other malignant neoplasm of stomach; Z66 Do not resuscitate; Z20.822 Contact with and (suspected) exposure to COVID-19; E11.9 Type 2 diabetes mellitus without complications; Z88.2 Allergy status to sulfonamides; Z88.8 Allergy status to other drugs, medicaments and biological substances; Z79.82 Long term (current) use of aspirin; Z79.01 Long term (current) use of anticoagulants; Z79.84 Long term (current) use of oral hypoglycemic drugs; Z79.4 Long term (current) use of insulin; Z79.899 Other long term (current) drug therapy; E66.01 Morbid (severe) obesity due to excess calories; D50.9 Iron deficiency anemia, unspecified; E78.5 Hyperlipidemia, unspecified; E05.90 Thyrotoxicosis, unspecified without thyrotoxic crisis or storm; Z86.711 Personal history of pulmonary embolism; S70.221A Blister (nonthermal), right hip, initial encounter; X58.XXXA Exposure to other specified factors, initial encounter; Y92.9 Unspecified place or not applicable; L89.156 Pressure-induced deep tissue damage of sacral region; E88.09 Other disorders of plasma-protein metabolism, not elsewhere classified; R57.1 Hypovolemic shock; I49.01 Ventricular fibrillation; D75.89 Other specified diseases of blood and blood-forming organs; E83.39 Other disorders of phosphorus metabolism; E11.65 Type 2 diabetes mellitus with hyperglycemia; E83.42 Hypomagnesemia
CPT/HCPCS: 31720; 36415; 36600; 70450-TC; 71045-TC; 71260-TC; 74018; 80048-TC; 80053-TC; 80076-TC; 81001; 82378; 82533; 82607-TC; 82728-TC; 82784; 82803-TC; 82962-TC; 83540-TC; 83605-TC; 83690-TC; 83735-TC; 84100-TC; 84155; 84165; 84443-TC; 84484-TC; 85025-TC; 85378-TC; 85610-TC; 85730-TC; 86304; 86334; 86850-TC; 87040-TC; 87081-TC; 87086-TC; 92950-TC; 94002-TC; 94003-TC; 94760-TC; 94799-TC; A4223; C9113; C9803; G0378; J0171; J0696; J1644; J1720; J1815; J2185; J2270; J2370; J2405; J3370; J3475; J3490; J7030; J7040; J7042; J7050; J7060; J7120; P9016; Q0164; Q9967